=== PATIENT | female | born 1960 | race Two or more races ===

== ENCOUNTER 2023-11-23 17:43 | Emergency (ER) | payer BC, MEDICAID ==
[~2023-11-23] VITALS: Ht 157.5 cm; Wt 59.0 kg
[2023-11-23] MEDS ORDERED: METR500T PO (18:23)
[2023-11-23] MEDS ORDERED: CIPR-262 PO (18:23)
[2023-11-23 18:36] VITALS: BP 142/98; TEMP 98.3; O2SAT 100
== END 2023-11-23 18:38 | disposition home or self-care (01) ==
LOC: ER 17:56
DX: A09 Infectious gastroenteritis and colitis, unspecified (principal); I10 Essential (primary) hypertension